=== PATIENT | female | born 1980 | race Hispanic/Latino ===

== ENCOUNTER 2019-06-24 13:35 | Outpatient (CLI) | payer OTHER ==
--- NOTE | 2019-06-24 14:42 | MRI ---
MRI LUMBAR SPINE NONCONTRAST: HISTORY: MRI lumbar spine without contrast. COMPARISON: None. FINDINGS: Appropriate T1 marrow signal intensity of the lumbar vertebrae. Lumbar spine vertebral body height is maintained. There is fracture. No significant STIR hyperintensity to suggest vertebral body edema or ligamentous injury. Symmetric signal intensity of the paraspinal muscles. Appropriate signal intensity of the visualized solid organs. Conus medullaris terminates at the inferior aspect of L1. T11-T12 and T12-L1: Adequate disc hydration. No significant central canal stenosis or significant kai ral foraminal narrowing. L1-L2: Adequate disc hydration. No significant central canal stenosis or significant neural foraminal narrowing. L2-L3: Adequate disc hydration. Minimal ligament flavum thickening and facet hypertrophy. No signific ant central canal stenosis or significant neural foraminal narrowing. L3-L4: Adequate disc hydration. No significant posterior disc abnormality. No significant central can al stenosis. Right neural foramen is patent. Mild left foraminal narrowing due to disc material. L4-L5: Desiccation with moderate loss of disc space height. There is a central/left subareolar disc e xtrusion. There is narrowing of the subarticular zones, left greater than right. Disc material abuts but does not obscure the traversing right L5 V nerve root. Disc material obscures the traversin g left L5 nerve root. There is a small component of inferior disc herniation. Moderate stenosis of the thecal sac. Mild to moderate right and left neural foraminal narrowing. L5-S1: No significant central canal stenosis or significant neural foraminal narrowing. Note, there i s partial sacralization of L5. IMPRESSION: Disc herniation at L4-L5 as described above. There is narrowing of the left subarticular zone with co mplete obscuration if the traversing left L5 nerve root. Overall there is moderate central canal stenosis at L4-L5. Transcribed Date/Time: 06/24/2019 2:49 PM
== END 2019-06-24 13:36 | disposition home or self-care (01) ==
LOC: BICMRI 13:35
PROVIDERS: ATTEND Family Medicine
DX: M54.5 Low back pain (principal); M51.36 Other intervertebral disc degeneration, lumbar region; M48.061 Spinal stenosis, lumbar region without neurogenic claudication
CPT/HCPCS: 72148